=== PATIENT | female | born 1950 | race Caucasian/White ===

== ENCOUNTER 2021-10-04 06:48 | Day surgery (SDC) | payer MEDICARE, BC ==
[2021-10-04] MEDS ORDERED: Sodium Chloride 0.9% 10 ML Syringe FLUSH PRN (07:00)
[2021-10-04] MEDS ORDERED: Lactated Ringers 1,000 ML IV SCH (07:00)
[2021-10-04] MEDS ORDERED: Propofol 200 MG/20 ML SDV ONE ×2 (07:57→08:22)
[2021-10-04] MEDS ORDERED: fentaNYL 100 MCG/2 ML SDV ONE (07:57)
[2021-10-04 09:22] VITALS: BP 120/67; PULSE 82
== END 2021-10-04 09:50 | disposition home or self-care (01) ==
LOC: VM.SDS 06:48
PROVIDERS: ATTEND Family Medicine
DX: Z12.11 Encounter for screening for malignant neoplasm of colon (principal); D12.4 Benign neoplasm of descending colon; K57.30 Diverticulosis of large intestine without perforation or abscess without bleeding; K64.9 Unspecified hemorrhoids; I10 Essential (primary) hypertension; E11.9 Type 2 diabetes mellitus without complications; E66.9 Obesity, unspecified; K21.9 Gastro-esophageal reflux disease without esophagitis; Z98.890 Other specified postprocedural states; Z80.0 Family history of malignant neoplasm of digestive organs; Z68.28 Body mass index [BMI] 28.0-28.9, adult
CPT/HCPCS: 00812; 82947; 88305; J2704; J3010; J7120

== ENCOUNTER 2023-03-15 10:12 | Emergency (ER) | payer MEDICARE, BC ==
[2023-03-15 10:25] VITALS: BP 152/76; PULSE 93
[2023-03-15 10:54] LABS: BASOPHILS PERCENT AUTO 0.6 % (0.2-1.2); EOSINOPHILS ABSOLUTE AUTO 0.2 x10^3/uL (0.0-0.5); EOSINOPHILS PERCENT AUTO 2.2 % (0.0-4.0); HEMATOCRIT 43.6 % (33.0-47.0); HEMOGLOBIN 15.7 g/dL (12.0-16.0); IMMATURE GRAN ABSOLUTE AUTO 0.01 x10^3/uL (0.00-0.07); LYMPHOCYTES ABSOLUTE AUTO 1.9 x10^3/uL (1.0-4.8); LYMPHOCYTES PERCENT AUTO 28.5 % (25.0-50.0); MEAN CORPUSCULAR HEMOGLOBIN 31.3 pg (26.0-32.0); MEAN CORPUSCULAR VOLUME 86.9 fL (78.0-93.0); MONOCYTES ABSOLUTE AUTO 0.7 x10^3/uL (0.0-0.8); MONOCYTES PERCENT AUTO 10.8 % (2.0-11.0); NEUTROPHILS ABSOLUTE AUTO 3.9 x10^3/uL (1.8-7.7); NEUTROPHILS PERCENT AUTO 57.8 % (50.0-80.0); PLATELET COUNT,PLT 269 x10^3/uL (130-400); RED BLOOD CELL COUNT 5.02 x10^6/uL (4.00-5.50); WHITE BLOOD CELL COUNT,WBC 6.7 x10^3/uL (4.0-10.0)
[2023-03-15 11:20] LABS: A/G RATIO 1.15; ALANINE AMINOTRANSFERASE,ALT 48 U/L (14-59); ALBUMIN 3.8 g/dL (3.4-5.0); ALKALINE PHOSPHATASE 68 U/L (46-116); ASPARTATE AMNIOTRANSFERASE,AST 42 U/L (15-37); BILIRUBIN TOTAL 0.6 mg/dL (0.2-1.0); BLOOD UREA NITROGEN,BUN 19 mg/dL (7-18); CALCIUM 9.2 mg/dL (8.5-10.1); CARBON DIOXIDE,CO2 25 mmol/L (21-32); CHLORIDE,CL 101 mmol/L (98-107); CREATININE 0.8 mg/dL (0.55-1.02); GLUCOSE RANDOM 156 mg/dL (70-99); MAGNESIUM 1.9 mg/dL (1.8-2.4); PHOSPHORUS 3.1 mg/dL (2.6-4.7); POTASSIUM,K 3.9 mmol/L (3.5-5.1); PROTEIN TOTAL,TP 7.1 g/dL (6.4-8.2); SODIUM,NA 139 mmol/L (136-145)
[2023-03-15 11:21] LABS: ANION GAP 16.9 mmol/L (5-15); ESTIMATED GFR 77 mL/min (>=60)
== END 2023-03-15 11:33 | disposition home or self-care (01) ==
LOC: VM.ED 10:12
DX: R00.2 Palpitations (principal); I10 Essential (primary) hypertension; E11.9 Type 2 diabetes mellitus without complications; E66.9 Obesity, unspecified; Z88.8 Allergy status to other drugs, medicaments and biological substances; Z88.0 Allergy status to penicillin; Z88.6 Allergy status to analgesic agent; Z88.1 Allergy status to other antibiotic agents; Z79.899 Other long term (current) drug therapy; Z79.4 Long term (current) use of insulin
CPT/HCPCS: 36415; 80053; 83735; 84100; 85025; 93005; 93010; 99285

== ENCOUNTER 2024-03-07 09:33 | Emergency (ER) | payer MEDICARE, BC ==
[2024-03-07 10:33] VITALS: BP 150/85; PULSE 120
== END 2024-03-07 10:28 | disposition home or self-care (01) ==
LOC: VM.ED 09:33
DX: E11.649 Type 2 diabetes mellitus with hypoglycemia without coma (principal); I10 Essential (primary) hypertension; E78.00 Pure hypercholesterolemia, unspecified; K21.9 Gastro-esophageal reflux disease without esophagitis; Z88.6 Allergy status to analgesic agent; Z88.0 Allergy status to penicillin; Z88.1 Allergy status to other antibiotic agents; Z88.8 Allergy status to other drugs, medicaments and biological substances; Z79.84 Long term (current) use of oral hypoglycemic drugs; Z79.4 Long term (current) use of insulin; Z79.899 Other long term (current) drug therapy; Z90.49 Acquired absence of other specified parts of digestive tract
CPT/HCPCS: 82947; 93005; 99285

== ENCOUNTER 2024-10-24 09:37 | Emergency (ER) | payer MEDICARE, BC ==
[2024-10-24 10:02] VITALS: BP 149/86; PULSE 110
== END 2024-10-24 10:20 | disposition home or self-care (01) ==
LOC: SUPCPDRO 09:37 → VM.ED 09:37
DX: E11.649 Type 2 diabetes mellitus with hypoglycemia without coma (principal); Z88.1 Allergy status to other antibiotic agents; Z88.0 Allergy status to penicillin; Z88.8 Allergy status to other drugs, medicaments and biological substances; Z79.85 Long-term (current) use of injectable non-insulin antidiabetic drugs; Z88.6 Allergy status to analgesic agent; Z79.84 Long term (current) use of oral hypoglycemic drugs; Z79.899 Other long term (current) drug therapy; Z79.4 Long term (current) use of insulin
CPT/HCPCS: 82947; 99284

== ENCOUNTER 2025-03-31 09:24 | Emergency (ER) | payer MEDICARE, BC ==
[2025-03-31] MEDS ORDERED: Sodium Chloride 0.9% 10 ML Syringe FLUSH PRN (09:46)
[2025-03-31 09:55] LABS: BASOPHILS ABSOLUTE AUTO 0.0 x10^3/uL (0.0-0.2); BASOPHILS PERCENT AUTO 0.6 % (0.2-1.2); EOSINOPHILS ABSOLUTE AUTO 0.1 x10^3/uL (0.0-0.5); EOSINOPHILS PERCENT AUTO 1.4 % (0.0-4.0); IMMATURE GRAN ABSOLUTE AUTO 0.00 x10^3/uL (0.00-0.07); IMMATURE GRAN PERCENT AUTO 0.00 % (0.00-0.43); LYMPHOCYTES ABSOLUTE AUTO 1.6 x10^3/uL (1.0-4.8); LYMPHOCYTES PERCENT AUTO 26.2 % (25.0-50.0); MONOCYTES ABSOLUTE AUTO 0.6 x10^3/uL (0.0-0.8); MONOCYTES PERCENT AUTO 8.9 % (2.0-11.0); NEUTROPHILS ABSOLUTE AUTO 3.9 x10^3/uL (1.8-7.7); NEUTROPHILS PERCENT AUTO 62.9 % (50.0-80.0); PLATELET COUNT,PLT 225 x10^3/uL (130-400); RED BLOOD CELL COUNT 5.22 x10^6/uL (4.00-5.50); WHITE BLOOD CELL COUNT,WBC 6.3 x10^3/uL (4.0-10.0)
[2025-03-31] MEDS: Ondansetron 4 MG/2 ML SDV IVPUSH ONE (10:00)
[2025-03-31 10:22] LABS: INR 0.9 (0.9-1.1); PTT,PARTIAL THROMBOPLSTIN TIME 23.3 SEC (23.5-33.2)
[2025-03-31 10:24] LABS: A/G RATIO 1.15; ALANINE AMINOTRANSFERASE,ALT 34 U/L (14-59); ASPARTATE AMNIOTRANSFERASE,AST 29 U/L (15-37); BILIRUBIN TOTAL 0.5 mg/dL (0.2-1.0); BLOOD UREA NITROGEN,BUN 22 mg/dL (7-18); CARBON DIOXIDE,CO2 27 mmol/L (21-32); CHLORIDE,CL 98 mmol/L (98-107); CREATININE 0.9 mg/dL (0.55-1.02); GLUCOSE RANDOM 253 mg/dL (70-99); POTASSIUM,K 3.8 mmol/L (3.5-5.1); PROTEIN TOTAL,TP 7.1 g/dL (6.4-8.2); SODIUM,NA 135 mmol/L (136-145)
[2025-03-31 10:30] LABS: ESTIMATED GFR 66 mL/min (>=60)
[2025-03-31] MEDS: Iopamidol 755 Mg/ML 100 ML Bottle IVPUSH ONE (11:33)
[2025-03-31 13:25] VITALS: BP 132/70; PULSE 78
== END 2025-03-31 13:05 | disposition home or self-care (01) ==
LOC: VM.ED 09:24
DX: M54.12 Radiculopathy, cervical region (principal); E78.00 Pure hypercholesterolemia, unspecified; I10 Essential (primary) hypertension; E11.9 Type 2 diabetes mellitus without complications; Z88.0 Allergy status to penicillin; Z88.1 Allergy status to other antibiotic agents; Z88.8 Allergy status to other drugs, medicaments and biological substances; Z88.6 Allergy status to analgesic agent; Z79.899 Other long term (current) drug therapy; Z79.4 Long term (current) use of insulin; Z79.84 Long term (current) use of oral hypoglycemic drugs; Z90.49 Acquired absence of other specified parts of digestive tract
CPT/HCPCS: 70450; 70496; 72125; 80053; 83735; 84484; 85025; 85610; 85730; 93005; 93010; 96374; 96375; 99284; 99284-25; J2270; J2405; Q9967